=== PATIENT | male | born 1940 | race Caucasian/White ===

== ENCOUNTER → 2021-10-03 10:30 | Outpatient (BNVA) | payer MEDICARE, SELFPAY | PROVIDERS: Visit Provider Podiatrist Foot & Ankle Surgery | DX: E11.9 Type 2 diabetes mellitus without complications (principal); M20.41 Other hammer toe(s) (acquired), right foot; M20.42 Other hammer toe(s) (acquired), left foot; M21.40 Flat foot [pes planus] (acquired), unspecified foot; M20.12 Hallux valgus (acquired), left foot; M21.621 Bunionette of right foot; M21.622 Bunionette of left foot; B35.1 Tinea unguium; E11.8 Type 2 diabetes mellitus with unspecified complications; E11.42 Type 2 diabetes mellitus with diabetic polyneuropathy | CPT/HCPCS: 99213 ==

== ENCOUNTER 2021-11-06 11:30 | Outpatient (CLI) | payer MEDICARE, SELFPAY ==
--- NOTE | 2021-11-06 11:48 | USCV_ITS ---
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 Dr Hazel Cook MD [facility] (Electronically Signed) Final Date: 07 November 2021 01:00 S
== END 2021-11-06 11:31 | disposition home or self-care (01) ==
LOC: RAD 11:31
PROVIDERS: Visit Provider Nurse Practitioner Family
DX: R29.898 Other symptoms and signs involving the musculoskeletal system (principal)
CPT/HCPCS: 93922

== ENCOUNTER → 2022-04-03 09:17 | Outpatient (BNVA) | payer MEDICARE, SELFPAY | PROVIDERS: Visit Provider Podiatrist Foot & Ankle Surgery | DX: E11.8 Type 2 diabetes mellitus with unspecified complications (principal); E11.42 Type 2 diabetes mellitus with diabetic polyneuropathy; M20.41 Other hammer toe(s) (acquired), right foot; M20.42 Other hammer toe(s) (acquired), left foot; M20.12 Hallux valgus (acquired), left foot; M21.621 Bunionette of right foot; M21.622 Bunionette of left foot; B35.1 Tinea unguium; M21.42 Flat foot [pes planus] (acquired), left foot; M21.41 Flat foot [pes planus] (acquired), right foot | CPT/HCPCS: 99214 ==

== ENCOUNTER → 2024-10-05 15:09 | Outpatient (BNVA) | payer MEDICARE, SELFPAY | PROVIDERS: PCP Nurse Practitioner Family; Visit Provider Internal Medicine Cardiovascular Disease | DX: R07.9 Chest pain, unspecified (principal) | CPT/HCPCS: 93005 ==

== ENCOUNTER 2024-11-05 12:37 | Outpatient (CLI) | payer MEDICARE, SELFPAY ==
--- NOTE | 2024-11-05 13:30 | USCV_ITS ---
Clay Casarez Age: 84 Gender: M : 1940 Exam Date: 11/05/2024 13:23 Ordering Phys: Liset Keith MD ([email or web address]) Technologist: ZACHARIAH [place] [facility] [place]: Syncope BP: 106 / 62 HR: 54 Rhythm: Sinus Technical Quality: Adequate MEASUREMENTS (Male / Female) Normal Values 2D ECHO LV Diastolic Diameter PLAX 5.9 cm 4.2 - 5.9 / 3.9 - 5.3 cm IVS Diastolic Thickness 1.1 cm 0.6 - 1.0 / 0.6 - 0.9 cm IVS Systolic Thickness 1.7 cm LVPW Diastolic Thickness 1.3 cm 0.6 - 1.0 / 0.6 - 0.9 cm LVPW Systolic Thickness 2.0 cm LVOT Diameter 2.0 cm LV Ejection Fraction 2D Teich 53.0 % LV Ejection Fraction MOD 4C 62.7 % LV Ejection Fraction MOD 2C 57.3 % LV Ejection Fraction 2C AL 60.2 % LA Diameter 5.1 cm RA Systolic Volume 4C AL 70.6 ml RA Systolic Volume 4C MOD 67.7 ml LA Sys Volume AL 74.9 cm cubed LA Sys Volume Index AL 31.2 cm cubed/m squared Aorta at Sinotubular Diameter 2.2 cm M-MODE LA Ao Ratio MM 1.7 AV Cusp Separation MM 1.7 cm DOPPLER AV Peak Velocity 129.0 cm/s LVOT Peak Velocity 92.0 cm/s AV Area Cont Eq vti 2.4 cm squared AV Area Cont Eq pk 2.2 cm squared MV Peak Velocity 102.0 cm/s MV Area PHT 2.6 cm squared Mitral E to A Ratio 0.8 TR Peak Velocity 300.0 cm/s TR Peak Gradient 36.0 mmHg TV Peak E Velocity 77.0 cm/s PV Peak Velocity 113.0 cm/s FINDINGS Left Ventricle Normal left ventricular size, systolic function and wall thickness, with no regional wall motion abnormalities. Left ventricular ejection fraction is estimated at 60 %. Grade I/IV diastolic dysfunction (abnormal relaxation filling pattern), normal to mildly elevated filling pressures. Right Ventricle The right ventricle is normal in size and function. Right Atrium The right atrium is normal in size. Left Atrium The left atrium is normal in size. Mitral Valve Thickened mitral valve. Moderate mitral valve prolapse. Aortic Valve Moderate aortic valve calcification. No aortic valve stenosis. Trace aortic valve regurgitation. Tricuspid Valve Moderate tricuspid valve regurgitation. Pulmonic Valve Mild pulmonary valve regurgitation. Pericardium Normal pericardium without effusion. Aorta Normal ascending aorta dimension. IVC The inferior vena cava appears normal. CONCLUSIONS Normal left ventricular size, systolic function and wall thickness, with no regional wall motion abnormalities. Left ventricular ejection fraction is estimated at 60 %. Grade I/IV diastolic dysfunction (abnormal relaxation filling pattern), normal to mildly elevated filling pressures. Thickened mitral valve. Moderate mitral valve prolapse. Moderate tricuspid valve regurgitation. Right atrial pressure is around 5 mm of mercury. Liset Keith MD (Electronically Signed) Final Date: 06 November 2024 17:51 S
== END 2024-11-05 12:38 | disposition home or self-care (01) ==
LOC: RAD 12:37
PROVIDERS: PCP Nurse Practitioner Family; Visit Provider Internal Medicine Cardiovascular Disease
DX: R55 Syncope and collapse (principal); R07.9 Chest pain, unspecified; R06.02 Shortness of breath; I51.89 Other ill-defined heart diseases; I34.9 Nonrheumatic mitral valve disorder, unspecified; I34.1 Nonrheumatic mitral (valve) prolapse; I36.1 Nonrheumatic tricuspid (valve) insufficiency
CPT/HCPCS: 93306